=== PATIENT | male | born 1975 | race Two or more races ===

== ENCOUNTER 2016-12-16 15:51 | Emergency (ER) | payer MEDICAID, OTHER ==
[~2016-12-16] VITALS: Ht 175.3 cm; Wt 68.0 kg
[~2016-12-16 15:51] MED LIST: ASPIRIN EC81 MG ORAL; BENAZEPRIL HCL10 MG ORAL; CARVEDILOL3.125 MG ORAL; SEROQUEL200 MG ORAL; TRAMADOL HCL50 MG ORAL; VENTOLIN HFA18 GM INH; WELLBUTRIN XL150 M1 ORAL; ZOLOFT50 MG ORAL
--- NOTE | 2016-12-16 16:10 | Emergency Room Report ---
History of Present Illness General Chief Complaint: Flu Like Symptoms Present Illness HPI 41-year-old male presents emergency department complaining of in the lateral sinus pain and increased pressure with purulent discharge x2 days. Patient reports fevers 4 days ago. Patient states that he recently had a sinus infection of the same side of the face about 6 months ago. Patient denies any compromise or ill contacts. Patient denies pain in the opposite sinus cavities. Patient denies congestion in the opposite sinuses. denies rashes. Patient denies neck pain denies cough. Patient is up-to-date with vaccinations. past medical history includes osteoporosis. Denies CP, Palpitations, LOC, AMS, dizziness, Changes in Vision, Sensation, paresthesias, or a sudden severe headache. Allergies: Coded Allergies: No Known Allergies (Unverified , 08/18/14) Patient History Past Medical History: see triage record Past Surgical History: none Pertinent Family History: none Reviewed Nursing Documentation: PMH: Agreed, PSxH: Agreed Nursing Documentation-PMH Hx Cardiac Problems: Yes - heart murmur Hx Asthma: Yes Review of Systems All Other Systems: negative except mentioned in HPI Physical Exam Vital Signs Date Time Temp Pulse Resp B/P Pulse Ox O2 Delivery O2 Flow Rate FiO2 12/16/16 15:59 97.7 53 20 118/74 97 Room Air Sp02 EP Interpretation: reviewed, normal General Appearance: no apparent distress, alert, GCS 15, non-toxic Head: normocephalic, atraumatic Eyes: bilateral eye EOMI, bilateral eye PERRL, bilateral eye normal inspection ENT: hearing grossly normal, normal pharynx, no angioedema, normal voice, TMs + canals normal, uvula midline, moist mucus membranes, nasal congestion - purulent nasal d/c noted on the left nares, other - moderate TTP of the left maxillary sinus, no frontal TTP. Neck: full range of motion, no meningismus, no bony tend, supple/symm/no masses Respiratory: chest non-tender, lungs clear, normal breath sounds, no respiratory distress, no accessory muscle use, speaking full sentences Cardiovascular #1: regular rate, rhythm, no edema, normal capillary refill Musculoskeletal: back normal, gait/station normal, normal range of motion, non- tender Neurologic: alert, oriented x3, responsive, motor strength/tone normal, sensory intact, speech normal Psychiatric: judgement/insight normal, memory normal, mood/affect normal, no suicidal/homicidal ideation Reflexes: 4+ bicep (R), 4+ bicep (L), 4+ tricep (R), 4+ tricep (L), 4+ knee (R) , 4+ knee (L) Skin: normal color, no rash, warm/dry, well hydrated Lymphatic: no adenopathy Medical Decision Making PA Attestation Dr. Kerns is my supervising Physician whom patient management has been discussed with. Diagnostic Impression: Primary Impression: Sinusitis, acute Qualified Codes: J01.01 - Acute recurrent maxillary sinusitis ER Course 41-year-old male presents emergency department complaining of in the lateral sinus pain and increased pressure with purulent discharge x2 days. Patient reports fevers 4 days ago. Patient states that he recently had a sinus infection of the same side of the face about 6 months ago. Patient denies any compromise or ill contacts. Patient denies pain in the opposite sinus cavities. Patient denies congestion in the opposite sinuses. Patient denies neck pain denies cough. Patient is up-to-date with vaccinations Ddx considered but are not limited to URI, pneumonia, PE, strep pharyngitis, meningitis, Sinusitis Vital signs: Pt. is afebrile, the remaining VS are WNL H&PE are most consistent with Sinusitis, acute- purulent unilateral nasal d/c, and maxillary sinus ttp of the left side. ORDERS: none required at this time, the diagnosis is clinical ED INTERVENTIONS: -Tylenol PO DISCHARGE: At this time pt. is stable for d/c to home. Will provide printed patient care instructions, and any necessary prescriptions. Care plan and follow up instructions have been discussed with the patient prior to discharge. Last Vital Signs Date Time Temp Pulse Resp B/P Pulse Ox O2 Delivery O2 Flow Rate FiO2 12/16/16 15:59 97.7 53 20 118/74 97 Room Air Disposition: HOME, SELF-CARE Condition: Stable Patient Instructions: Sinusitis, Adult, [id number] Additional Instructions: Take medications as directed. Follow up with PCP in 3-5 days Return sooner to ED if new symptoms occur, or current symptoms become worse. Do not drink alcohol, drive, or operate heavy machinery while taking [ ] as this may cause drowsiness. - Please note that this Emergency Department Report was dictated using [employer] technology software, occasionally this can lead to erroneous entry secondary to interpretation by the dictation equipment. Kelly Crisostomo Dec 16, 2016 16:10
[2016-12-16 16:24] VITALS: BP 123/76
[2016-12-16] MEDS ORDERED: NASONEX17 GM NASAL (16:42)
[2016-12-16] MEDS ORDERED: AUGMENTIN 875-1 EAC1 ORAL (16:42)
[2016-12-16] MEDS ORDERED: TYLENOL EXTRA500 MG ORAL (16:42)
[2016-12-16] MEDS ORDERED: Acetaminophen 500mg (ES) tab ORAL ONE (16:45)
[2016-12-16 16:51] VITALS: BP 123/76
== END 2016-12-16 16:52 | disposition home or self-care (01) ==
LOC: EMR 16:40
DX: J01.01 Acute recurrent maxillary sinusitis (principal); J45.909 Unspecified asthma, uncomplicated
CPT/HCPCS: 99284

== ENCOUNTER 2018-09-02 04:03 | Emergency (ER) | payer OTHER ==
[~2018-09-02] VITALS: Ht 172.7 cm; Wt 54.4 kg
[~2018-09-02 04:03] MED LIST changes: +AUGMENTIN 875-1 EAC1 ORAL; +NASONEX17 GM NASAL; +TYLENOL EXTRA500 MG ORAL
[2018-09-02 04:15] VITALS: BP 93/56
[2018-09-02] MEDS ORDERED: Methocarbamol 750mg tab ORAL ONE (04:30)
[2018-09-02] MEDS ORDERED: Morphine Sulfate 4mg/ml Inj (IV/IM USE ONLY) IVP ONE (04:30)
[2018-09-02 05:10] LABS: BASOPHILS % (AUTO) 1.9 % (0.0-2.0); EOSINOPHILS % (AUTO) 2.3 % (0.0-3.0); HEMATOCRIT 39.3 % (42.0-52.0); HEMOGLOBIN 13.5 G/DL (14.2-18.0); LYMPHOCYTES % (AUTO) 38.7 % (20.0-45.0); MEAN CORPUSCULAR VOLUME 89 FL (80-99); MONOCYTES % (AUTO) 6.2 % (1.0-10.0); PLATELET COUNT 200 K/UL (150-450); RED BLOOD COUNT 4.39 M/UL (4.70-6.10); RED CELL DISTRIBUTION WIDTH 10.9 % (11.6-14.8); WHITE BLOOD COUNT 7.5 K/UL (4.8-10.8)
[2018-09-02 05:13] LABS: ANION GAP 4 mmol/L (5-15); BLOOD UREA NITROGEN 10 mg/dL (7-18); CALCIUM 10.9 MG/DL (8.5-10.1); CARBON DIOXIDE 28 MMOL/L (21-32); CHLORIDE 106 MMOL/L (98-107); CREATININE 0.9 MG/DL (0.55-1.30); POTASSIUM 3.8 MMOL/L (3.5-5.1); SODIUM 138 MMOL/L (136-145)
--- NOTE | 2018-09-02 05:17 | Emergency Room Report ---
History of Present Illness General Chief Complaint: Shoulder Injury Source: Patient Present Illness HPI 43-year-old male presents ED for evaluation. Run in by EMS for shoulder pain. Started tonight after he reached forward to grab his phone from the bed using his left arm. Patient describes 10 out of 10 tearing pain in his left shoulder radiating to his back. Denies shortness of breath. Worse with positional changes. Had pacemaker placed 2 weeks ago. Denies alcohol or drug use. No other aggravating relieving factors. Denies any other associated symptoms Allergies: Coded Allergies: No Known Allergies (Unverified , 08/18/14) Patient History Past Medical History: asthma, CVA/TIA Past Surgical History: pacemaker Pertinent Family History: none Social History: Denies: smoking, alcohol use, drug use Immunizations: UTD Reviewed Nursing Documentation: PMH: Agreed; PSxH: Agreed Nursing Documentation-PMH Hx Cardiac Problems: Yes - heart murmur Hx Asthma: Yes Hx Neurological Problems: Yes - osteoporosis Hx Cerebrovascular Accident: Yes - 2 previous stroke Review of Systems All Other Systems: negative except mentioned in HPI Physical Exam Vital Signs Date Time Temp Pulse Resp B/P (MAP) Pulse Ox O2 Delivery O2 Flow Rate FiO2 09/02/18 04:12 97.3 67 16 93/56 100 Room Air Sp02 EP Interpretation: reviewed, normal General Appearance: alert, GCS 15, non-toxic, mild distress Head: normocephalic, atraumatic Eyes: bilateral eye normal inspection, bilateral eye PERRL ENT: hearing grossly normal, normal pharynx, no angioedema, normal voice Neck: full range of motion, supple/symm/no masses Respiratory: lungs clear, normal breath sounds, speaking full sentences, other - L sided chest wall pain Cardiovascular #1: regular rate, rhythm, no edema Cardiovascular #2: 2+ carotid (R), 2+ carotid (L), 2+ radial (R), 2+ radial (L) , 2+ dorsalis pedis (R), 2+ dorsalis pedis (L) Gastrointestinal: normal bowel sounds, non tender, soft, non-distended, no guarding, no rebound Rectal: deferred Genitourinary: normal inspection, no CVA tenderness Musculoskeletal: gait/station normal, normal range of motion, other - L upper back pain Neurologic: alert, oriented x3, responsive, motor strength/tone normal, sensory intact, speech normal Psychiatric: judgement/insight normal, memory normal, mood/affect normal, no suicidal/homicidal ideation Reflexes: 3+ bicep (R), 3+ bicep (L), 3+ tricep (R), 3+ tricep (L), 3+ knee (R) , 3+ knee (L) Skin: normal color, no rash, warm/dry, well hydrated Lymphatic: no adenopathy Medical Decision Making Diagnostic Impression: Primary Impression: Chest wall muscle strain Qualified Codes: S29.011A - Strain of muscle and tendon of front wall of thorax, initial encounter Additional Impression: S/P placement of cardiac pacemaker ER Course Hospital Course 43-year-old male presents ED complaining of L shoulder, back and chest wall pain. s/p pacemaker placement Differential diagnoses include: Rib fracture, MO/unstable angina, contusion, muscle strain Clinical course Patient placed on stretcher. After initial history and physical I ordered labs , EKG, chest x-ray, pain meds. labs reviewed- all electrolytes normal, troponins negative, no leukocytosis, hemoglobin/hematocrit stable EKG - paced rhythm, no acute ischemic changes interpreted by me Chest x-ray-no cardiomegaly, no rib fracture, no pneumothorax, pacemaker in place no acute process Clinical findings consistent with muscle strain. However given patient's cardiac history and recent pacemaker placement felt it was necessary to do a cardiac workup. I believe the pain is secondary to recent pacemaker placement as patient was instructed not to elevate his arm. However pacemaker does appear in place on chest x-ray and appears to be operating well based on EKG. There is no bleeding from the incision site I offered option for admission and observation with patient states he would prefer to follow-up with his PMD as outpatient I. I feel this is a highly complex case requiring extensive working including EKG/Rhythm strip, Xray/CT/US, Blood/urine lab work, repeat exams while in ED, and administration of strong opiates/narcotics for pain control, admission to hospital or close patient follow up. Diagnosis - chest wall muscle strain, s/p cardiac pacemaker placement Stable and discharged to home with prescription for robaxin, tylenol #3. Instructed to followup with PMD. Return to ED if symptoms recur or worsen my chest wall pain shortness Labs Test 09/02/18 04:31 White Blood Count 7.5 K/UL (4.8-10.8) Red Blood Count 4.39 M/UL (4.70-6.10) Hemoglobin 13.5 G/DL (14.2-18.0) Hematocrit 39.3 % (42.0-52.0) Mean Corpuscular Volume 89 FL (80-99) Mean Corpuscular Hemoglobin 30.8 PG (27.0-31.0) Mean Corpuscular Hemoglobin Concent 34.4 G/DL (32.0-36.0) Red Cell Distribution Width 10.9 % (11.6-14.8) Platelet Count 200 K/UL (150-450) Mean Platelet Volume 6.9 FL (6.5-10.1) Neutrophils (%) (Auto) 51.0 % (45.0-75.0) Lymphocytes (%) (Auto) 38.7 % (20.0-45.0) Monocytes (%) (Auto) 6.2 % (1.0-10.0) Eosinophils (%) (Auto) 2.3 % (0.0-3.0) Basophils (%) (Auto) 1.9 % (0.0-2.0) Sodium Level 138 MMOL/L (136-145) Potassium Level 3.8 MMOL/L (3.5-5.1) Chloride Level 106 MMOL/L (98-107) Carbon Dioxide Level 28 MMOL/L (21-32) Anion Gap 4 mmol/L (5-15) Blood Urea Nitrogen 10 mg/dL (7-18) Creatinine 0.9 MG/DL (0.55-1.30) Estimat Glomerular Filtration Rate > 60 mL/min (>60) Glucose Level 94 MG/DL (74-106) Calcium Level 10.9 MG/DL (8.5-10.1) Total Bilirubin 0.3 MG/DL (0.2-1.0) Aspartate Amino Transf (AST/SGOT) 17 U/L (15-37) Alanine Aminotransferase (ALT/SGPT) 24 U/L (12-78) Alkaline Phosphatase 63 U/L (46-116) Total Creatine Kinase 63 U/L (26-308) Creatine Kinase MB < 0.5 NG/ML (0.0-3.6) Creatine Kinase MB Relative Index 0.7 Troponin I 0.005 ng/mL (0.000-0.056) Total Protein 7.4 G/DL (6.4-8.2) Albumin 3.6 G/DL (3.4-5.0) Globulin 3.8 g/dL Albumin/Globulin Ratio 0.9 (1.0-2.7) EKG Diagnostic Results Rate: normal Rhythm: other - paced ST Segments: no acute changes Rhythm Strip Diag. Results EP Interpretation: yes Rhythm: no PVC's, no ectopy Chest X-Ray Diagnostic Results Chest X-Ray Diagnostic Results : Chest X-Ray Ordered: Yes # of Views/Limited/Complete: 1 View Indication: Chest Pain EP Interpretation: Yes Interpretation: no consolidation, no effusion, no pneumothorax, no acute cardiopulmonary disease, other - pacemaker Impression: No acute disease Electronically Signed by: Electronically signed by Yann Mota MD Last Vital Signs Date Time Temp Pulse Resp B/P (MAP) Pulse Ox O2 Delivery O2 Flow Rate FiO2 09/02/18 04:15 97.3 67 16 93/56 100 Room Air Status: improved Disposition: HOME, SELF-CARE Condition: Stable Scripts Methocarbamol* (ROBAXIN-750*) 750 Mg Tablet 750 MG PO TID, #21 TAB 0 Refills Prov: Yann Mota MD 09/02/18 Acetaminophen With Codeine (T#3) (TYLENOL #3 TAB*) Y Tab 1 TAB ORAL Q8H PRN for For Pain for 3 Days, TAB Prov: Yann Mota MD 09/02/18 Referrals: [facility],REFERR[facility] (PCP) Yann Mota MD Sep 02, 2018 05:17
[2018-09-02 05:27] LABS: ALANINE AMINOTRANSFERASE 24 U/L (12-78); ALBUMIN 3.6 G/DL (3.4-5.0); ALBUMIN/GLOBULIN RATIO 0.9 (1.0-2.7); ALKALINE PHOSPHATASE 63 U/L (46-116); ASPARTATE AMINO TRANSFERASE 17 U/L (15-37); BILIRUBIN,TOTAL 0.3 MG/DL (0.2-1.0); CKMB < 0.5 NG/ML (0.0-3.6); CREATINE KINASE 63 U/L (26-308)
[2018-09-02] MEDS ORDERED: Ketorolac 30mg Inj IV ONE (05:45)
[2018-09-02] MEDS ORDERED: ROBAXIN-750750 MG PO (05:56)
[2018-09-02] MEDS ORDERED: ACETAMINOPHEN-1 EAC1 ORAL (05:56)
[2018-09-02 06:00] VITALS: BP 117/61
[2018-09-02 06:40] VITALS: BP 117/61
--- NOTE | 2018-09-02 10:42 | Diagnostic Imaging Report ---
Indication: Chest pain Technique: One view of the chest Comparison: 08/18/2014 Findings: Interim pacemaker placement. Lungs and pleural spaces are clear. Heart size is normal Impression: Pacemaker. No acute process
--- NOTE | 2018-09-03 14:51 | Cardiology Report ---
APPROVED REPORT EKG Measurement Heart [id number] Atrial paced ventricular sensed rhythm. Electronic pacemaker
== END 2018-09-02 06:41 | disposition home or self-care (01) ==
LOC: EDBD 04:03 → EMR 04:27
DX: S29.011A Strain of muscle and tendon of front wall of thorax, initial encounter (principal); X50.9XXA Other and unspecified overexertion or strenuous movements or postures, initial encounter; Y92.9 Unspecified place or not applicable; Z95.0 Presence of cardiac pacemaker; Z86.73 Personal history of transient ischemic attack (TIA), and cerebral infarction without residual deficits; M81.0 Age-related osteoporosis without current pathological fracture; J45.909 Unspecified asthma, uncomplicated
CPT/HCPCS: 36415; 71045; 80053; 82550; 82553; 84484; 85025; 93005; 96374; 96375; 99284; J1885; J2270